=== PATIENT | female | born 1970 | race Caucasian/White ===

== ENCOUNTER → 2023-12-28 17:21 | Outpatient (REF) | payer OTHER, SELFPAY | LOC: WDC 17:21 | PROVIDERS: ATTENDING PHYSICIAN Obstetrics & Gynecology; FAMILY PHYSICIAN Family Medicine | DX: Z12.31 Encounter for screening mammogram for malignant neoplasm of breast (principal) | CPT/HCPCS: 77063; 77067 ==

== ENCOUNTER → 2024-04-10 11:14 | Outpatient (REF) | payer OTHER, SELFPAY | LOC: RAD 11:14 | PROVIDERS: ATTENDING PHYSICIAN Obstetrics & Gynecology; FAMILY PHYSICIAN Nurse Practitioner Family | DX: N30.10 Interstitial cystitis (chronic) without hematuria (principal); R31.29 Other microscopic hematuria; R39.15 Urgency of urination | CPT/HCPCS: 76770 ==

== ENCOUNTER 2024-05-11 15:01 | Outpatient (RCR) | payer OTHER, SELFPAY | END 2024-05-11 23:59 | disposition home or self-care (01) | LOC: RPT 15:01 | PROVIDERS: ATTENDING PHYSICIAN Obstetrics & Gynecology; FAMILY PHYSICIAN Family Medicine | DX: N30.10 Interstitial cystitis (chronic) without hematuria (principal); R31.29 Other microscopic hematuria; R39.15 Urgency of urination; M62.89 Other specified disorders of muscle; Z73.6 Limitation of activities due to disability | CPT/HCPCS: 97110; 97140; 97162; 97530 ==

== ENCOUNTER 2024-06-15 11:02 | Outpatient (RCR) | payer OTHER, SELFPAY | END 2024-06-15 23:59 | disposition home or self-care (01) | LOC: RPT 11:02 | PROVIDERS: ATTENDING PHYSICIAN Obstetrics & Gynecology; FAMILY PHYSICIAN Family Medicine | DX: N30.10 Interstitial cystitis (chronic) without hematuria (principal); R31.29 Other microscopic hematuria; R39.15 Urgency of urination; M62.89 Other specified disorders of muscle; Z73.6 Limitation of activities due to disability | CPT/HCPCS: 97110; 97530 ==

== ENCOUNTER 2024-06-29 12:05 | Outpatient (RCR) | payer OTHER, SELFPAY | END 2024-06-29 14:09 | disposition home or self-care (01) | LOC: RPT 12:05 | PROVIDERS: ATTENDING PHYSICIAN Obstetrics & Gynecology; FAMILY PHYSICIAN Family Medicine | DX: N30.10 Interstitial cystitis (chronic) without hematuria (principal); R31.29 Other microscopic hematuria; R39.15 Urgency of urination; M62.89 Other specified disorders of muscle; Z73.6 Limitation of activities due to disability | CPT/HCPCS: 97110; 97140; 97530 ==

== ENCOUNTER 2025-04-29 20:34 | Emergency (ER) | payer OTHER, SELFPAY ==
[2025-04-29 20:37] VITALS: BP 189/127
[2025-04-29 21:38] VITALS: BMI 42.5
[2025-04-29] MEDS: DUONEB 3 ML INH (21:47)
[2025-04-29 21:54] LABS: Hematocrit 41.5 % (37.0-47.0); Hemoglobin 14.3 g/dL (12.0-16.0); Mean Corp Hgb Conc. 34.5 g/dL (33.0-37.0); Mean Corpuscular Volume 86.5 fL (81.0-99.0); Nucleated Red Blood Cells % 0 %; Platelet Count 192 10^3/uL (130-400); Red Cell Dist. Width 12.9 % (11.5-14.5)
--- NOTE | 2025-04-29 21:59 | ED.GENMED ---
History of Present Illness
General
Chief Complaint: Cold/Flu/URI Symptoms
Source: patient
Exam Limitations: none
Time Seen by Provider: 04/29/25 21:12
Nursing documentation reviewed up to this point in time: agreed with
History of Present Illness
History of Present Illness:
Patient states approx 10 days ago she developed URI symptoms. States over the next few days her sympotms worsened. She was seen by PCP this week and told she had sinusitis, ear infection, bronchitis. SHe was placed on doxycycline but reports no
improvement. Complains of sinus congestion, ear pain cough, weakness, fatigue. Brought self to ED for eval.
Past History
Past History
ED Past Medical History: HTN and Other (Migraine headaches, kidney stones); Negative Asthma, Hypercholesterolemia or NIDDM
ED Past Surgical History: None, Gynecological (Uterine ablation, bladder sling surgery, Hysterecetomy with Left oophorectomy) and Tonsilectomy
Social History
Tobacco: Non-smoker
Alcohol: Occasional
Drug: None
Personal:
Living: with family
Employment: Employed
Family History
Family History: Other (Noncontributory)
Review of Systems
Review of Systems
Allergies reviewed?: Yes
All Other Systems: ROS reviewed and negative except as documented in HPI and ROS
Constitutional: Reports fatigue
EENT: Reports tearing and runny nose (congestion)
Respiratory: Reports cough
Cardiac: Reports no symptoms
ABD/GI: Reports no symptoms
: Reports no symptoms
Musculoskeletal: Reports no symptoms
Skin: Reports no symptoms
Neurological: Reports weakness
Psychiatric: Reports no symptoms
Phy Exam
General Physical Exam
General Presentation: mild distress
ENT Exam
ENT Exam: EOMI, TM's normal, pharynx normal and swallowing well
Eye Exam
Eye Exam: PERRL, EOMI and other (bilateral conjunctivitis)
Cardiovascular Exam
Cardiovascular Exam: regular rate/rhythm and no edema
Pulmonary Exam
Pulmonary Exam: lungs clear, no respiratory distress and chest non tender
Musculoskeletal Exam
Musculoskeletal Exam: full ROM and neuro vasc intact
Skin Exam
Skin Exam: normal color, warm/dry and no rash
Psychiatric Exam
Psychiatric Exam: normal mood/affect
Course
Orders/Labs/Results
Orders:
Orders
04/29/25 21:35
Ipratropium/Albuterol Sulfate [Duoneb] 3 ml INH R NOW STA
CR Chest - 2 Views Urgent
Comment:
Reason For Exam: cough
04/29/25 21:45
Basic Metabolic Panel Urgent
COVID-19 Antigen Urgent
Source: Nasal Swab
Complete Blood Count/With Diff Urgent
Influenza A+B Rapid Molecular Urgent
TRISHA Source: Nasal Swab
Specimen Description:
04/29/25 21:58
Dexamethasone Sod Phosphate [Decadron] 10 mg IV NOW STA
Abnormal Lab Results
04/29/25
21:45
Absolute Monos (auto) 0.7 H 10^3/uL
(0.1-0.6)
BUN 20 H mg/dl
(7-17)
04/29/25 21:45
04/29/25 21:45
Vital Signs
Initial and Last Documented VS:
Initial Vital Signs
Temp Pulse Resp BP Pulse Ox
98.6 F 98 16 189/127 98
04/29/25 20:37 04/29/25 20:37 04/29/25 20:37 04/29/25 20:37 04/29/25 20:37
Last Documented Vital Signs
Temp Pulse Resp BP Pulse Ox
98.6 F 89 18 150/76 96
04/29/25 20:37 04/29/25 22:09 04/29/25 22:09 04/29/25 22:09 04/29/25 22:09
*Radiology
Radiology exam reviewed: radiology read reviewed
*Pulse Oximetry
SaO2: 98
Oxygen Mode of Delivery: Room air
Patient hypoxic: no
*Critical Care Note
Total Time (30-74mins, 75-104mins- exclusive of procedures): Not Applicable
Update Note
Update Note:
PPatient to ED with complaint of URI, bronchitis symptoms x 1 week, no improvement with doxycycline. VSS, she remains afebrile. PPulse ox 98% RA. Labs reviewed. CBC, BMP unremarkable. LCTA. Presents witn nonproductive cough. Given duoneb in
ED with some improvement. Decadron given IV in ED. will continue with prednisone taper for acute bronchitis. She is discharged home, given instructions on s/s to return to ED and she is agreeable to plan.
ED Attending Note
-
Portions of this chart may have been created with voice recognition software.� Occasional wrong word or��sound alike� substitutions may have occurred due to the inherent limitations of voice recognition software.
Discharge Plan
Departure
Patient Disposition: Home (Routine Discharge)
Date of Disposition: 04/29/25
Time of Disposition: 22:21
Patient with high blood pressure during this ER visit?: No
Condition: Good
Covid-19: Not Applicable
Discharge Problem:
Acute bronchitis, Acute viral syndrome
Instructions: Acute Bronchitis, Adult (DC), Viral Syndrome (DC)
Prescriptions:
New
albuterol sulfate [Ventolin HFA] 90 mcg/actuation HFA aerosol inhaler
2 puff inhalation Q4H PRN (Reason: shortness of breath or wheezing) Qty: 8.5 0RF
prednisone 10 mg Tablet
See Rx Instructions .ROUTE .COMPLEX Qty: 30 0RF
Rx Instructions:
Take By Mouth:
40 mg daily x3 days, 30 mg daily x3 days,
20 mg daily x3 days, 10 mg daily x3 days.
No Action
lisinopril 10 MG tablet
10 mg PO DAILY
metoprolol tartrate 50 MG tablet
50 mg PO DAILY
hydrochlorothiazide 12.5 MG capsule
12.5 mg PO DAILY
cefdinir 300 mg capsule
300 mg PO BID Qty: 13 0RF
albuterol sulfate [ProAir HFA] 90 mcg/actuation Hfa Aerosol Inhaler
2 puff INHALATION Q4HPRN PRN (Reason: shortness of breath/cough) Qty: 90 0RF
Rx Instructions:
Dispense with spacer
Referrals:
Yuliana Selby MD [Family Provider, Family Practice] - Follow up in 2-3 days
Stand Alone Forms: Return to Work
Activity Restrictions/Additional Instructions:
Return to the emergency department immediately for any changes in/worsening of your symptoms.
Interventions
Interventions:
*Risk Screen - Suicide Last Done: 04/29/25 20:37
*General Assessment Last Done: 04/29/25 20:37
*Neglect/Abuse Screening Last Done: 04/29/25 20:37
*ED- Fall Risk Assessment Last Done: 04/29/25 21:38
*ED COVID-19 Vaccine History Last Done: 04/29/25 21:38
*Nursing Disposition Last Done: 04/29/25 22:23
ED- Pulmonary Assessment Last Done: 04/29/25 21:51
Discharge Date and Time
Print Language: BULGARIAN
[2025-04-29] MEDS: DECADRON 10 MG IV (22:06)
[2025-04-29 22:09] VITALS: BP 150/76
[2025-04-29 22:09] LABS: Blood Urea Nitrogen 20 mg/dl (7-17); Calcium 9.6 mg/dl (8.4-10.2); Carbon Dioxide 25 mmol/L (22-30); Chloride 107 mmol/L (98-107); Estimated Creatinine Clearance 113 ml/min; Glucose 94 mg/dl (70-99); Sodium 140 mmol/L (135-145); eGFR > 60.00
[2025-04-29 22:11] LABS: COVID-19 Antigen Negative (Negative)
== END 2025-04-29 22:28 | disposition home or self-care (01) ==
LOC: EMR 20:34
PROVIDERS: Nurse Practitioner; EMERGENCY PHYSICIAN Emergency Medicine; FAMILY PHYSICIAN Family Medicine
DX: J20.9 Acute bronchitis, unspecified (principal); B34.9 Viral infection, unspecified; I10 Essential (primary) hypertension
CPT/HCPCS: 99284; 96374; 94640; 71046; 80048; 85025; 87502; 87811